=== PATIENT | female | born 1940 | race American Indian/Alaskan Native ===

== ENCOUNTER 2018-07-24 17:37 | Inpatient (IN) | payer MEDICARE ==
--- NOTE | 2018-07-24 19:06 | Emergency Department Report ---
ED Altered Mental Status HPI - General Chief Complaint: Weakness Stated Complaint: WEAKNESS Time Seen by Provider: 07/24/18 18:04 Source: EMS, old records reviewed (no previous record) Mode of arrival: Stretcher Limitations: Altered Mental Status - History of Present Illness Initial Comments: 78-year-old female with a past medical history of dementia, hypertension, hyperlipidemia, asthma, and [id number] diabetes presents to the hospital complains of generalized weakness and change in mental status 1 week. Patient was initially taken to a primary care clinic for evaluation and subsequently referred to the ER for further workup. Patient also has not had a bowel movement 1 week. Patient is unable to communicate exception of lessening her name when questioned. She does not answer questions overlie the follow commands. Awaiting family member at the bedside determine baseline mental status. - Related Data Allergies Allergy/AdvReac Type Severity Reaction Status Date / Time No Known Allergies Allergy Unverified 07/24/18 19:08 ED Review of Systems ROS: Stated complaint: WEAKNESS Other details as noted in HPI Comment: All other systems reviewed and negative ED Past Medical Hx - Past Medical History Previous Medical History?: Yes Hx Hypertension: Yes Hx Diabetes: Yes (DM with neuro manisfestation) Hx Asthma: Yes Hx Dementia: Yes Additional medical history: Hyperlipidemia; mild intermittent asthma; - Social History Smoking Status: Never Smoker Substance Use Type: None ED Physical Exam - General Limitations: Altered Mental Status - Other Other exam information: General: No limitations, patient is alert in no acute distress Head exam: Atraumatic, normocephalic Eyes exam: Normal appearance, pupils equal reactive to light, extraocular movements intact ENT: Moist mucous membrane, normal oropharynx Neck exam: Normal inspection, full range of motion, no meningismus nontender Respiratory exam: Clear to auscultation bilateral, no wheezes, rales, crackles Cardiovascular: Normal rate and rhythm, normal heart sounds Abdomen: Soft, nondistended, and nontender, with normal bowel sounds, no rebound, or guarding Extremity: Full range of motion normal inspection no deformity Back: Normal Inspection, full range of motion, no tenderness Neurologic: Alert, oriented x 1, cranial nerves intact, no motor or sensory deficit Psychiatric: normal affect, normal mood Skin: Warm, dry, intact ED Course Vital Signs 07/24/18 07/24/18 07/24/18 18:16 18:30 18:41 Temperature 98.1 F Pulse Rate 66 76 Respiratory 16 14 16 Rate Blood Pressure 147/118 Blood Pressure 147/118 [Right] O2 Sat by Pulse 94 94 Oximetry 07/24/18 07/24/18 07/24/18 18:46 19:00 19:16 Temperature Pulse Rate 72 69 71 Respiratory 16 14 16 Rate Blood Pressure 147/118 147/118 147/118 Blood Pressure [Right] O2 Sat by Pulse 97 91 78 L Oximetry 07/24/18 07/24/18 07/24/18 19:30 19:46 20:00 Temperature Pulse Rate 65 64 68 Respiratory 13 11 L 14 Rate Blood Pressure 147/118 147/118 147/118 Blood Pressure [Right] O2 Sat by Pulse 96 91 87 Oximetry 07/24/18 07/24/18 07/24/18 20:16 20:30 20:46 Temperature Pulse Rate 65 66 64 Respiratory 16 13 15 Rate Blood Pressure 147/118 147/118 147/118 Blood Pressure [Right] O2 Sat by Pulse 94 95 96 Oximetry 07/24/18 07/24/18 07/24/18 21:07 21:16 21:30 Temperature Pulse Rate 66 63 65 Respiratory 16 13 13 Rate Blood Pressure 147/118 147/118 147/118 Blood Pressure [Right] O2 Sat by Pulse 96 97 Oximetry - Lab Data Result diagrams: 07/24/18 21:24 07/24/18 21:24 Lab Results 07/24/18 07/24/18 07/24/18 Range/Units 19:03 19:20 19:20 WBC (4.5-11.0) K/mm3 RBC (3.65-5.03) M/mm3 Hgb (10.1-14.3) gm/dl Hct (30.3-42.9) % MCV (79-97) fl MCH (28-32) pg MCHC (30-34) % RDW (13.2-15.2) % Plt Count (140-440) K/mm3 Lymph % (Auto) (13.4-35.0) % [place] % (Auto) (0.0-7.3) % Eos % (Auto) (0.0-4.3) % Baso % (Auto) (0.0-1.8) % Lymph # (1.2-5.4) K/mm3 [place] # (0.0-0.8) K/mm3 Eos # (0.0-0.4) K/mm3 Baso # (0.0-0.1) K/mm3 Seg Neutrophils % (40.0-70.0) % Seg Neutrophils # (1.8-7.7) K/mm3 PT (12.2-14.9) Sec. INR (0.87-1.13) APTT (24.2-36.6) Sec. Sodium Potassium Chloride Carbon Dioxide Anion Gap BUN Creatinine Estimated GFR BUN/Creatinine Ratio Glucose POC Glucose 125 H (70-105) Calcium Total Bilirubin AST ALT Alkaline Phosphatase Total Creatine Kinase (30-135) units/L CK-MB (CK-2) (0.0-4.0) ng/mL CK-MB (CK-2) Rel Index (0-4) Troponin T (0.00-0.029) ng/mL Total Protein Albumin Albumin/Globulin Ratio TSH (0.270-4.200) mlU/mL Urine Color Yellow (Yellow) Urine Turbidity Slightly-cloudy (Clear) Urine pH 5.0 (5.0-7.0) Ur Specific [place] 1.015 (1.003-1.030) Urine Protein 30 mg/dl (Negative) mg/dL Urine Glucose (UA) Neg (Negative) mg/dL Urine Ketones Neg (Negative) mg/dL Urine Blood Neg (Negative) Urine Nitrite Neg (Negative) Urine Bilirubin Neg (Negative) Urine Urobilinogen < 2.0 (<2.0) mg/dL Ur Leukocyte Esterase Neg (Negative) Urine WBC (Auto) 9.0 H (0.0-6.0) /HPF Urine RBC (Auto) 2.0 (0.0-6.0) /HPF U Epithel Cells (Auto) < 1.0 (0-13.0) /HPF Urine WBC Clumps 2+ /HPF Hyaline Casts 3 /LPF Urine Mucus Few /HPF Salicylates (2.8-20.0) mg/dL Urine Opiates Screen Presumptive negative Urine Methadone Screen Presumptive negative Acetaminophen (10.0-30.0) ug/mL Ur Barbiturates Screen Presumptive negative Ur Phencyclidine Scrn Presumptive negative Ur Amphetamines Screen Presumptive negative U Benzodiazepines Scrn Presumptive negative Urine Cocaine Screen Presumptive negative U Marijuana (THC) Screen Presumptive negative Drugs of Abuse Note Disclamer Plasma/Serum Alcohol (0-0.07) % 07/24/18 07/24/18 07/24/18 Range/Units 19:36 19:36 19:36 WBC 12.0 H (4.5-11.0) K/mm3 RBC 5.14 H (3.65-5.03) M/mm3 Hgb 15.5 H (10.1-14.3) gm/dl Hct 47.7 H (30.3-42.9) % MCV 93 (79-97) fl MCH 30 (28-32) pg MCHC 33 (30-34) % RDW 13.5 (13.2-15.2) % Plt Count 153 (140-440) K/mm3 Lymph % (Auto) 25.6 (13.4-35.0) % [place] % (Auto) 9.1 H (0.0-7.3) % Eos % (Auto) 1.7 (0.0-4.3) % Baso % (Auto) 0.5 (0.0-1.8) % Lymph # 3.1 (1.2-5.4) K/mm3 [place] # 1.1 H (0.0-0.8) K/mm3 Eos # 0.2 (0.0-0.4) K/mm3 Baso # 0.1 (0.0-0.1) K/mm3 Seg Neutrophils % 63.1 (40.0-70.0) % Seg Neutrophils # 7.6 (1.8-7.7) K/mm3 PT (12.2-14.9) Sec. INR (0.87-1.13) APTT (24.2-36.6) Sec. Sodium TNR Potassium TNR Chloride TNR Carbon Dioxide TNR Anion Gap TNR BUN TNR Creatinine TNR Estimated GFR TNR BUN/Creatinine Ratio TNR Glucose TNR POC Glucose (70-105) Calcium TNR Total Bilirubin TNR AST TNR ALT TNR Alkaline Phosphatase TNR Total Creatine Kinase (30-135) units/L CK-MB (CK-2) (0.0-4.0) ng/mL CK-MB (CK-2) Rel Index (0-4) Troponin T (0.00-0.029) ng/mL Total Protein TNR Albumin TNR Albumin/Globulin Ratio TNR TSH 1.950 (0.270-4.200) mlU/mL Urine Color (Yellow) Urine Turbidity (Clear) Urine pH (5.0-7.0) Ur Specific [place] (1.003-1.030) Urine Protein (Negative) mg/dL Urine Glucose (UA) (Negative) mg/dL Urine Ketones (Negative) mg/dL Urine Blood (Negative) Urine Nitrite (Negative) Urine Bilirubin (Negative) Urine Urobilinogen (<2.0) mg/dL Ur Leukocyte Esterase (Negative) Urine WBC (Auto) (0.0-6.0) /HPF Urine RBC (Auto) (0.0-6.0) /HPF U Epithel Cells (Auto) (0-13.0) /HPF Urine WBC Clumps /HPF Hyaline Casts /LPF Urine Mucus /HPF Salicylates (2.8-20.0) mg/dL Urine Opiates Screen Urine Methadone Screen Acetaminophen (10.0-30.0) ug/mL Ur Barbiturates Screen Ur Phencyclidine Scrn Ur Amphetamines Screen U Benzodiazepines Scrn Urine Cocaine Screen U Marijuana (THC) Screen Drugs of Abuse Note Plasma/Serum Alcohol (0-0.07) % 07/24/18 07/24/18 07/24/18 Range/Units 19:36 19:36 19:36 WBC (4.5-11.0) K/mm3 RBC (3.65-5.03) M/mm3 Hgb (10.1-14.3) gm/dl Hct (30.3-42.9) % MCV (79-97) fl MCH (28-32) pg MCHC (30-34) % RDW (13.2-15.2) % Plt Count (140-440) K/mm3 Lymph % (Auto) (13.4-35.0) % [place] % (Auto) (0.0-7.3) % Eos % (Auto) (0.0-4.3) % Baso % (Auto) (0.0-1.8) % Lymph # (1.2-5.4) K/mm3 [place] # (0.0-0.8) K/mm3 Eos # (0.0-0.4) K/mm3 Baso # (0.0-0.1) K/mm3 Seg Neutrophils % (40.0-70.0) % Seg Neutrophils # (1.8-7.7) K/mm3 PT (12.2-14.9) Sec. INR (0.87-1.13) APTT (24.2-36.6) Sec. Sodium Potassium Chloride Carbon Dioxide Anion Gap BUN Creatinine Estimated GFR BUN/Creatinine Ratio Glucose POC Glucose (70-105) Calcium Total Bilirubin AST ALT Alkaline Phosphatase Total Creatine Kinase (30-135) units/L CK-MB (CK-2) (0.0-4.0) ng/mL CK-MB (CK-2) Rel Index (0-4) Troponin T (0.00-0.029) ng/mL Total Protein Albumin Albumin/Globulin Ratio TSH (0.270-4.200) mlU/mL Urine Color (Yellow) Urine Turbidity (Clear) Urine pH (5.0-7.0) Ur Specific [place] (1.003-1.030) Urine Protein (Negative) mg/dL Urine Glucose (UA) (Negative) mg/dL Urine Ketones (Negative) mg/dL Urine Blood (Negative) Urine Nitrite (Negative) Urine Bilirubin (Negative) Urine Urobilinogen (<2.0) mg/dL Ur Leukocyte Esterase (Negative) Urine WBC (Auto) (0.0-6.0) /HPF Urine RBC (Auto) (0.0-6.0) /HPF U Epithel Cells (Auto) (0-13.0) /HPF Urine WBC Clumps /HPF Hyaline Casts /LPF Urine Mucus /HPF Salicylates < 0.3 L (2.8-20.0) mg/dL Urine Opiates Screen Urine Methadone Screen Acetaminophen < 5.0 L (10.0-30.0) ug/mL Ur Barbiturates Screen Ur Phencyclidine Scrn Ur Amphetamines Screen U Benzodiazepines Scrn Urine Cocaine Screen U Marijuana (THC) Screen Drugs of Abuse Note Plasma/Serum Alcohol < 0.01 (0-0.07) % 07/24/18 07/24/18 07/24/18 Range/Units 19:36 21:24 21:24 WBC 9.1 (4.5-11.0) K/mm3 RBC 5.00 (3.65-5.03) M/mm3 Hgb 15.4 H (10.1-14.3) gm/dl Hct 47.1 H (30.3-42.9) % MCV 94 (79-97) fl MCH 31 (28-32) pg MCHC 33 (30-34) % RDW 13.8 (13.2-15.2) % Plt Count 204 (140-440) K/mm3 Lymph % (Auto) [place] Singer (13.4-35.0) % [place] % (Auto) Choir Singer (0.0-7.3) % Eos % (Auto) [place] Singer (0.0-4.3) % Baso % (Auto) [place] Singer (0.0-1.8) % Lymph # [place]oir Singer (1.2-5.4) K/mm3 [place] # Choir Singer (0.0-0.8) K/mm3 Eos # [place]oir Singer (0.0-0.4) K/mm3 Baso # [place]oir Singer (0.0-0.1) K/mm3 Seg Neutrophils % [place] Singer (40.0-70.0) % Seg Neutrophils # [place] Singer (1.8-7.7) K/mm3 PT 10.0 L (12.2-14.9) Sec. INR 0.68 L (0.87-1.13) APTT 25.6 (24.2-36.6) Sec. Sodium Potassium Chloride Carbon Dioxide Anion Gap BUN Creatinine Estimated GFR BUN/Creatinine Ratio Glucose POC Glucose (70-105) Calcium Total Bilirubin AST ALT Alkaline Phosphatase Total Creatine Kinase 263 H (30-135) units/L CK-MB (CK-2) 1.1 (0.0-4.0) ng/mL CK-MB (CK-2) Rel Index 0.4 (0-4) Troponin T 0.013 (0.00-0.029) ng/mL Total Protein Albumin Albumin/Globulin Ratio TSH (0.270-4.200) mlU/mL Urine Color (Yellow) Urine Turbidity (Clear) Urine pH (5.0-7.0) Ur Specific [place] (1.003-1.030) Urine Protein (Negative) mg/dL Urine Glucose (UA) (Negative) mg/dL Urine Ketones (Negative) mg/dL Urine Blood (Negative) Urine Nitrite (Negative) Urine Bilirubin (Negative) Urine Urobilinogen (<2.0) mg/dL Ur Leukocyte Esterase (Negative) Urine WBC (Auto) (0.0-6.0) /HPF Urine RBC (Auto) (0.0-6.0) /HPF U Epithel Cells (Auto) (0-13.0) /HPF Urine WBC Clumps /HPF Hyaline Casts /LPF Urine Mucus /HPF Salicylates (2.8-20.0) mg/dL Urine Opiates Screen Urine Methadone Screen Acetaminophen (10.0-30.0) ug/mL Ur Barbiturates Screen Ur Phencyclidine Scrn Ur Amphetamines Screen U Benzodiazepines Scrn Urine Cocaine Screen U Marijuana (THC) Screen Drugs of Abuse Note Plasma/Serum Alcohol (0-0.07) % 07/24/18 Range/Units 21:24 WBC (4.5-11.0) K/mm3 RBC (3.65-5.03) M/mm3 Hgb (10.1-14.3) gm/dl Hct (30.3-42.9) % MCV (79-97) fl MCH (28-32) pg MCHC (30-34) % RDW (13.2-15.2) % Plt Count (140-440) K/mm3 Lymph % (Auto) (13.4-35.0) % [place] % (Auto) (0.0-7.3) % Eos % (Auto) (0.0-4.3) % Baso % (Auto) (0.0-1.8) % Lymph # (1.2-5.4) K/mm3 [place] # (0.0-0.8) K/mm3 Eos # (0.0-0.4) K/mm3 Baso # (0.0-0.1) K/mm3 Seg Neutrophils % (40.0-70.0) % Seg Neutrophils # (1.8-7.7) K/mm3 PT (12.2-14.9) Sec. INR (0.87-1.13) APTT (24.2-36.6) Sec. Sodium 144 Potassium 6.0 H Chloride 103.6 Carbon Dioxide 21 L Anion Gap 25 BUN 66 H Creatinine 2.9 H Estimated GFR 19 BUN/Creatinine Ratio 23 Glucose 125 H POC Glucose (70-105) Calcium 10.1 Total Bilirubin 0.30 AST 18 ALT 11 Alkaline Phosphatase 96 Total Creatine Kinase (30-135) units/L CK-MB (CK-2) (0.0-4.0) ng/mL CK-MB (CK-2) Rel Index (0-4) Troponin T (0.00-0.029) ng/mL Total Protein 7.9 Albumin 4.3 Albumin/Globulin Ratio 1.2 TSH (0.270-4.200) mlU/mL Urine Color (Yellow) Urine Turbidity (Clear) Urine pH (5.0-7.0) Ur Specific [place] (1.003-1.030) Urine Protein (Negative) mg/dL Urine Glucose (UA) (Negative) mg/dL Urine Ketones (Negative) mg/dL Urine Blood (Negative) Urine Nitrite (Negative) Urine Bilirubin (Negative) Urine Urobilinogen (<2.0) mg/dL Ur Leukocyte Esterase (Negative) Urine WBC (Auto) (0.0-6.0) /HPF Urine RBC (Auto) (0.0-6.0) /HPF U Epithel Cells (Auto) (0-13.0) /HPF Urine WBC Clumps /HPF Hyaline Casts /LPF Urine Mucus /HPF Salicylates (2.8-20.0) mg/dL Urine Opiates Screen Urine Methadone Screen Acetaminophen (10.0-30.0) ug/mL Ur Barbiturates Screen Ur Phencyclidine Scrn Ur Amphetamines Screen U Benzodiazepines Scrn Urine Cocaine Screen U Marijuana (THC) Screen Drugs of Abuse Note Plasma/Serum Alcohol (0-0.07) % - EKG Data -: EKG Interpreted by [facility] EKG shows normal: sinus rhythm (qrs 38q), axis (qrs 38), QRS complexes (qrsd 131 ), ST-T waves (no stemi/t inv) Rate: normal When compared to previous EKG there are: previous EKG unavailable - Radiology Data Radiology results: report reviewed CT head: No acute findings Chest x-ray: No acute findings FINAL REPORT EXAM: XR ABDOMEN 2V HISTORY: no bm x 1 week TECHNIQUE: Supine and left lateral decubitus views of the abdomen PRIORS: None. FINDINGS: The bowel gas pattern is nonspecific. There is a small amount of stool present in the rectum the in minimal stool in the descending colon. No free air is identified. Soft tissues have no evidence for mass shadows. There are several amorphous rounded calcifications in the pelvis, likely due to fibroids in the uterus. The largest measures 4 cm. The bony structures are intact. IMPRESSION: Nonspecific, nonobstructive bowel gas pattern with no acute process noted. - Medical Decision Making ams + Dementia plus UTI: Rocephin ordered, cultures pending Renal insufficiency BUN/creatinine ratio suggesting dehydration Associated hyperkalemia (slightly hemolyzed as per lab): Sodium bicarbonate, albuterol, insulin, glucose, calcium gluconate ordered. Previous creatinine not available for comparison Normal saline initiated Lack of bowel movement No signs of obstruction on abdominal x-ray - Differential Diagnosis dementia, delirium, encephalopathy, CVA infection Critical Care Time: No Critical care attestation.: If time is entered above; I have spent that time in minutes in the direct care of this critically ill patient, excluding procedure time. ED Disposition Clinical Impression: Dementia, Acute alteration in mental status, UTI (urinary tract infection), Renal insufficiency, Hyperkalemia Disposition: OP ADMIT IP TO THIS HOSP Is pt being admited?: Yes Condition: Stable Time of Disposition: 22:03 (hospitalist/Dr Mcmahan)
[2018-07-24 20:04] LABS: Basophils # (Auto) 0.1 K/mm3 (0.0-0.1); Basophils % (Auto) 0.5 % (0.0-1.8); Eosinophils # (Auto) 0.2 K/mm3 (0.0-0.4); Eosinophils % (Auto) 1.7 % (0.0-4.3); Hematocrit 47.7 % (30.3-42.9); Hemoglobin 15.5 gm/dl (10.1-14.3); Lymphocytes # (Auto) 3.1 K/mm3 (1.2-5.4); Lymphocytes % (Auto) 25.6 % (13.4-35.0); Mean Corpuscular HGB Conc 33 % (30-34); Mean Corpuscular Hemoglobin 30 pg (28-32); Mean Corpuscular Volume 93 fl (79-97); Monocytes # (Auto) 1.1 K/mm3 (0.0-0.8); Monocytes % (Auto) 9.1 % (0.0-7.3); Platelet Count 153 K/mm3 (140-440); Red Blood Count 5.14 M/mm3 (3.65-5.03); Red Cell Distribution Width 13.5 % (13.2-15.2)
[2018-07-24 20:10] LABS: Amphetamine Screen,Urine PRESUMPTIVE NEGATIVE; Benzodiazepines Screen,Urine PRESUMPTIVE NEGATIVE; Cannabinoid Screen,Urine PRESUMPTIVE NEGATIVE; Cocaine Screen,Urine PRESUMPTIVE NEGATIVE; Methadone Screen,Urine PRESUMPTIVE NEGATIVE; Opiate Screen,Urine PRESUMPTIVE NEGATIVE
[2018-07-24 20:11] LABS: Creatine Kinase MB 1.1 ng/mL (0.0-4.0)
--- NOTE | 2018-07-24 20:26 | XRay Report ---
FINAL REPORT EXAM: XR CHEST 1V AP HISTORY: Altered Mental Status TECHNIQUE: AP portable view of the chest PRIORS: None. FINDINGS: Lines, tubes, and devices: N/A Lungs and pleura: Trachea is normal in position. Lungs are clear of infiltrate, pleural effusion, vascular congestion, or pneumothorax. Cardiomediastinal silhouette: Cardiac silhouette is upper limits normal in size. Aorta is normal.. Other: Bony structures are intact. IMPRESSION: No acute cardiopulmonary process seen.
[2018-07-24 20:28] LABS: Bilirubin,Urine NEG (Negative); Blood,Urine NEG (Negative); Color,Urine Yellow (Yellow); Hyaline Casts,Urine 3 /LPF; Mucus,Urine FEW /HPF; Urobilinogen,Urine < 2.0 mg/dL (<2.0)
[2018-07-24] MEDS ORDERED: ROCEPHIN/NS 1 GM/50 ML 1 GM/50 ML BAG IV ONE (20:34)
[2018-07-24 20:43] LABS: Alanine Aminotransferase TNR units/L (7-56); Albumin TNR g/dL (3.9-5); BUN/Creatinine Ratio TNR; Blood Urea Nitrogen TNR mg/dL (7-17); Calcium TNR mg/dL (8.4-10.2)
[2018-07-24 20:44] LABS: Hemolysis Index TNR
--- NOTE | 2018-07-24 20:45 | XRay Report ---
FINAL REPORT EXAM: XR ABDOMEN 2V HISTORY: no bm x 1 week TECHNIQUE: Supine and left lateral decubitus views of the abdomen PRIORS: None. FINDINGS: The bowel gas pattern is nonspecific. There is a small amount of stool present in the rectum the in minimal stool in the descending colon. No free air is identified. Soft tissues have no evidence for mass shadows. There are several amorphous rounded calcifications in the pelvis, likely due to fibroids in the uterus. The largest measures 4 cm. The bony structures are intact. IMPRESSION: Nonspecific, nonobstructive bowel gas pattern with no acute process noted.
--- NOTE | 2018-07-24 21:28 | Cat Scan Report ---
FINAL REPORT EXAM: CT HEAD/BRAIN WO CON HISTORY: AMS TECHNIQUE: Standard unenhanced CT of the head at 5.0 millimeter axial increments. PRIORS: None. FINDINGS: The ventricular system is normal in size and configuration. There is no evidence for parenchymal volume loss. There is no evidence for mass lesion, mass effect, midline shift, acute intracranial hemorrhage, or acute ischemia/ infarction. No evidence for acute skull fracture is seen. No abnormality in the overlying scalp soft tissues is seen. Visualized paranasal sinuses are clear. IMPRESSION: Negative CT of the head. No acute intracranial process noted.
[2018-07-24 21:40] LABS: Partial Thromboplastin Time 25.6 Sec. (24.2-36.6)
[2018-07-24 21:43] LABS: INR 0.68 (0.87-1.13)
[2018-07-24 21:46] LABS: Albumin 4.3 g/dL (3.9-5); Calcium 10.1 mg/dL (8.4-10.2)
[2018-07-24 21:47] LABS: Hematocrit 47.1 % (30.3-42.9); Hemoglobin 15.4 gm/dl (10.1-14.3); Mean Corpuscular HGB Conc 33 % (30-34); Mean Corpuscular Hemoglobin 31 pg (28-32); Mean Corpuscular Volume 94 fl (79-97); Platelet Count 204 K/mm3 (140-440); Red Cell Distribution Width 13.8 % (13.2-15.2)
[2018-07-24] MEDS ORDERED: CALCIUM GLUCONATE 1,000 MG in NACL 0.9% 100 ML IV ONE (21:57)
[2018-07-24] MEDS ORDERED: NACL 0.9% 1000 ML 1,000 ML IV ONE (21:57)
[2018-07-24] MEDS ORDERED: PROVENTIL IH ONE (21:57)
[2018-07-24] MEDS ORDERED: KIONEX PO ONE (21:57)
[2018-07-24] MEDS ORDERED: D50W (25GM) Syringe IV ONE (21:58)
[2018-07-24] MEDS ORDERED: HumuLIN R IV ONE (21:58)
[2018-07-24] MEDS ORDERED: SODIUM BICARBONATE IV ONE (21:58)
--- NOTE | 2018-07-24 23:16 | History and Physical Report ---
History of Present Illness Date of examination: 07/24/18 History of present illness: 78-year-old woman with a history of hypertension, dementia, hyperlipidemia, diabetes, asthma was brought to emergency room for generalized weakness and altered mental status per the chart. Unable to reach family, patient is unable to give history PAST MEDICAL HISTORY:hypertension, dementia, hyperlipidemia, diabetes, asthma PAST SURGICAL HISTORY: Unknown SOCIAL HISTORY: Unknown FAMILY HISTORY: Unknown Medications and Allergies Allergies Allergy/AdvReac Type Severity Reaction Status Date / Time No Known Allergies Allergy Unverified 07/24/18 19:08 Exam - Physical Exam Narrative exam: Gen. appearance: Patient lying in bed, no apparent distress HEENT: Normocephalic, atraumatic, pupils equally round and reactive to light, extraocular movement intact, and no sclericterus,. No JVD or thyromegaly or nodule,neck supple, no carotid bruit ,mucous membranes dry, no exudate or erythema Heart: S1, S2, regular rate and rhythm Lungs: Clear bilaterally, breathing comfortable Abdomen: Positive bowel sounds, non-tender, nondistended, no organomegaly Extremity:no edema cyanosis, clubbing Skin: no rash, dry, warm Neuro:difficult to assess - Constitutional Vitals: Temp Pulse Resp BP Pulse Ox 98.1 F 65 13 147/118 97 07/24/18 18:16 07/24/18 21:30 07/24/18 21:30 07/24/18 21:30 07/24/18 21:30 Results - Labs CBC & Chem 7: 07/24/18 21:24 07/24/18 21:24 Labs: Abnormal lab results 07/24/18 07/24/18 07/24/18 Range/Units 19:03 19:20 19:36 WBC 12.0 H (4.5-11.0) K/mm3 RBC 5.14 H (3.65-5.03) M/mm3 Hgb 15.5 H (10.1-14.3) gm/dl Hct 47.7 H (30.3-42.9) % [place] % (Auto) 9.1 H (0.0-7.3) % [place] # 1.1 H (0.0-0.8) K/mm3 PT (12.2-14.9) Sec. INR (0.87-1.13) Potassium (3.6-5.0) mmol/L Carbon Dioxide (22-30) mmol/L BUN (7-17) mg/dL Creatinine (0.7-1.2) mg/dL Glucose (65-100) mg/dL POC Glucose 125 H (70-105) Total Creatine Kinase (30-135) units/L Urine WBC (Auto) 9.0 H (0.0-6.0) /HPF Salicylates (2.8-20.0) mg/dL Acetaminophen (10.0-30.0) ug/mL 07/24/18 07/24/18 07/24/18 Range/Units 19:36 19:36 19:36 WBC (4.5-11.0) K/mm3 RBC (3.65-5.03) M/mm3 Hgb (10.1-14.3) gm/dl Hct (30.3-42.9) % [place] % (Auto) (0.0-7.3) % [place] # (0.0-0.8) K/mm3 PT (12.2-14.9) Sec. INR (0.87-1.13) Potassium (3.6-5.0) mmol/L Carbon Dioxide (22-30) mmol/L BUN (7-17) mg/dL Creatinine (0.7-1.2) mg/dL Glucose (65-100) mg/dL POC Glucose (70-105) Total Creatine Kinase 263 H (30-135) units/L Urine WBC (Auto) (0.0-6.0) /HPF Salicylates < 0.3 L (2.8-20.0) mg/dL Acetaminophen < 5.0 L (10.0-30.0) ug/mL 07/24/18 07/24/18 07/24/18 Range/Units 21:24 21:24 21:24 WBC (4.5-11.0) K/mm3 RBC (3.65-5.03) M/mm3 Hgb 15.4 H (10.1-14.3) gm/dl Hct 47.1 H (30.3-42.9) % [place] % (Auto) (0.0-7.3) % [place] # (0.0-0.8) K/mm3 PT 10.0 L (12.2-14.9) Sec. INR 0.68 L (0.87-1.13) Potassium 6.0 H (3.6-5.0) mmol/L Carbon Dioxide 21 L (22-30) mmol/L BUN 66 H (7-17) mg/dL Creatinine 2.9 H (0.7-1.2) mg/dL Glucose 125 H (65-100) mg/dL POC Glucose (70-105) Total Creatine Kinase (30-135) units/L Urine WBC (Auto) (0.0-6.0) /HPF Salicylates (2.8-20.0) mg/dL Acetaminophen (10.0-30.0) ug/mL - Imaging and Cardiology Chest x-ray: report reviewed Abdominal x-ray: report reviewed CT Scan - head: report reviewed Assessment and Plan Assessment Acute renal failure Hyperkalemia Urinary tract infection Diabetes Dementia Hypertension Hyperlipidemia Plan Admit to medicine Start IV fluid, check ultrasound of the kidneys, consult renal Status post cocktail for hyperkalemia, follow-up potassium level Start IV Rocephin and follow cultures Check fingersticks and initiate insulin sliding scale DVT prophylaxis
[2018-07-24] MEDS ORDERED: NACL 0.45% 1000 ML 1,000 ML IV SCH (23:45)
[2018-07-25] MEDS ORDERED: TYLENOL PO PRN (03:31)
[2018-07-25] MEDS ORDERED: ZOFRAN IV PRN (03:31)
[2018-07-25] MEDS ORDERED: SODIUM CHLORIDE FLUSH SYRINGE 10 ML IV PRN (03:31)
[2018-07-25] MEDS ORDERED: D50W (25GM) Syringe IV PRN ×2 (03:40→17:50)
[2018-07-25 04:55] LABS: Basophils # (Auto) 0.1 K/mm3 (0.0-0.1); Basophils % (Auto) 0.7 % (0.0-1.8); Eosinophils # (Auto) 0.2 K/mm3 (0.0-0.4); Eosinophils % (Auto) 2.1 % (0.0-4.3); Hematocrit 40.7 % (30.3-42.9); Hemoglobin 13.3 gm/dl (10.1-14.3); Lymphocytes # (Auto) 3.1 K/mm3 (1.2-5.4); Lymphocytes % (Auto) 29.5 % (13.4-35.0); Mean Corpuscular HGB Conc 33 % (30-34); Mean Corpuscular Hemoglobin 30 pg (28-32); Mean Corpuscular Volume 93 fl (79-97); Monocytes # (Auto) 0.8 K/mm3 (0.0-0.8); Monocytes % (Auto) 7.9 % (0.0-7.3); Platelet Count 219 K/mm3 (140-440); Red Blood Count 4.36 M/mm3 (3.65-5.03); Red Cell Distribution Width 13.5 % (13.2-15.2)
[2018-07-25] MEDS: HumaLOG SUB-Q SCH ×4 (08:10→18:07)
--- NOTE | 2018-07-25 09:24 | Consultation ---
History of Present Illness - Reason for Consult Consult date: 07/25/18 acute renal failure - History of Present Illness History obtained from records. Family members not at bedside 78-year-old female with a past medical history of dementia, hypertension, type II DM who presents to the hospital w/ AMS. Patient was initially taken to a primary care clinic for evaluation and subsequently referred to the ER for further workup. Patient also has not had a bowel movement 1 week. Patient does not answer questions or follow commands. Past History Past Medical History: diabetes, hypertension, hyperlipidemia Social history: lives with family Family history: no significant family history Medications and Allergies Allergies Allergy/AdvReac Type Severity Reaction Status Date / Time No Known Allergies Allergy Unverified 07/24/18 19:08 Home Medications Medication Instructions Recorded Confirmed Last Taken Type ALBUTEROL Inhaler (OR & NICU) 2 puff IH QID PRN 07/25/18 07/25/18 Unknown History [Proair] Acetaminophen 325 mg PO TID PRN 07/25/18 07/25/18 Unknown History AtorvaSTATin [Lipitor] 10 mg PO QHS 07/25/18 07/25/18 Unknown History Ipratropium/Albuterol Sulfate 1 ampul IH Q6HR 07/25/18 07/25/18 Unknown History [DUONEB *Not for PRN Use*] Lisinopril [Zestril TAB] 40 mg PO QDAY 07/25/18 07/25/18 Unknown History Memantine HCl [Namenda Xr] 28 mg PO DAILY 07/25/18 07/25/18 Unknown History Metoprolol Xl [Metoprolol 50 mg PO QDAY 07/25/18 07/25/18 Unknown History SUCCINATE ER TAB] Montelukast [Singulair] 10 mg PO QPM 07/25/18 07/25/18 Unknown History amLODIPine [Norvasc] 5 mg PO DAILY 07/25/18 07/25/18 Unknown History glipiZIDE [Glipizide] 5 mg PO BID 07/25/18 07/25/18 Unknown History metFORMIN [Glucophage] 500 mg PO BID 07/25/18 07/25/18 Unknown History tiZANidine [Zanaflex] 4 mg PO BID 07/25/18 07/25/18 Unknown History Active Meds: Active Medications Acetaminophen (Tylenol) 650 mg PO Q4H PRN PRN Reason: Pain MILD(1-3)/Fever >100.5/SANTOS Dextrose (D50w (25gm) Syringe) 50 ml IV PRN PRN PRN Reason: Hypoglycemia Enoxaparin Sodium (Lovenox) 30 mg SUB-Q QDAY LISBETH Hydralazine HCl (Apresoline) 5 mg IV Q6HR PRN PRN Reason: Hypertension Sodium Chloride (Nacl 0.45% 1000 Ml) 1,000 mls @ 75 mls/hr IV DIRECT LISBETH Insulin Human Lispro (Humalog) 0 unit SUB-Q ACHS LISBETH; Protocol Last Admin: 07/25/18 08:10 Dose: Not Given Ondansetron HCl (Zofran) 4 mg IV Q8H PRN PRN Reason: Nausea And Vomiting Sodium Chloride (Sodium Chloride Flush Syringe 10 Ml) 10 ml IV BID LISBETH Sodium Chloride (Sodium Chloride Flush Syringe 10 Ml) 10 ml IV PRN PRN PRN Reason: LINE FLUSH Review of Systems ROS unobtainable: due to mental status Exam - Vital Signs Vital signs: Vital Signs Temp Pulse Resp BP Pulse Ox 98.1 F 66 16 147/118 94 07/24/18 18:16 07/24/18 18:16 07/24/18 18:16 07/24/18 18:16 07/24/18 18:16 - General Appearance General appearance: well-developed, well-nourished EENT: ATNC Respiratory: Clear to Ascultation Heart: regular, S1S2 Gastrointestinal: Present: normal. Absent: tenderness, distended Integumentary: no rash, warm and dry Neurologic: other (awake, alert, does not respond to questions) Psychiatric: cooperative Results - Lab Results 07/25/18 04:15 07/26/18 06:09 Most recent lab results Calcium 10.0 mg/dL (8.4-10.2) 07/25/18 04:15 Assessment and Plan Assessment * Acute kidney injury secondary to prerenal azotemia due to volume depletion * Hypernatermia * Hyperkalemia * Urinary tract infection * Type II DM * Hypertension * Dementia Plan * Agree with IVF * Monitor UOP and volume status * Abx per primary team * Dose medications for renal function * Avoid potential nephrotoxins
[2018-07-25] MEDS ORDERED: LOVENOX SUB-Q SCH (10:00)
--- NOTE | 2018-07-25 14:26 | Ultrasound Report ---
ULTRASOUND RENAL BILATERAL HISTORY: Acute renal failure. TECHNIQUE: transabdominal ultrasound with color Doppler interrogation. FINDINGS: Scans of the kidneys show normal renal contours. There is normal central calyceal clustering and good preservation of the cortical thickness. There is no evidence of mass or hydronephrosis. The views of the bladder and the region of the ureters appear normal. IMPRESSION: Unremarkable renal ultrasound.
--- NOTE | 2018-07-25 17:43 | Progress Note ---
Assessment and Plan Assessment and plan: Patient is a 78 yo woman with Advance Dementia, hypertension, DM2, hyperlipidemia and asthma who pw AMS. Acute renal failure, vasomotor nephropathy, poa: treat with IVF, avoid nephrotoxic drugs, consulted Nephrology Hyperkalemia: treat with kayexalate, repeat in am Hypernatremia: adjust ivf, change to d5 and watch blood glucose closely, repeat bmp am Urinary tract infection, poa: treat with aBX, follow urine culture Diabetes Mellitus type 2: ssi until she starts to eat Advance Dementia: fall precaution, aspiration precautions, consult speech Acute encephalopathy: treat the uti Hypertension: continue to monitor on ivf Hyperlipidemia; treat with statins DVT prophylaxis: sq heparin, stopped sq lovenox full code History Interval history: Patient was seen and examined. Follow-up on current diagnosis of AMS. Overnight uneventful. Patient denies any chest pain, shortness breath, nausea/vomiting or severe headaches. Imaging, nursing note, chart, labs and old chart reviewed. Discussed with patient. Daughters Cathy Rosario and Kaitlynn (pt has 7 children) at bedside. Patient lives with Marlene (hospice nurse I believe) and she report FTT for couple of days with AMS. Patient was in hospice but out lived the stay. is the POA. We did discuss PEG tube but daughter Marlene is not in favor of PEG because the FTT/not eating or drinking only occurs when something is wrong. Hospitalist Physical - Physical exam Narrative exam: GEN: WDWN, illappearing NAD, Awake, Alert, Not talking HEENT: NCAT, EOMI, PERRL, OP Clear NECK: supple, no adenopathy, no thyromegaly, no JVD CVS/HEART: RRR, normal S1S2, pulses present bilaterally CHEST/LUNGS: CTA B, Symmetrical chest expansion, good air entry bilaterally GI/Abdomen: soft, NTND, good bowel sounds, no guarding or rebound /Bladder: +suprapubic tenderness, no CVA or paraspinal tenderness EXT/Skin: no c/c/e, no obvious rash MSK: FROM x 4 Neuro: CN 2-12 grossly intact, no new focal deficits Psych: calm and confused - Constitutional Vitals: Temp Pulse Resp BP Pulse Ox 98.7 F 74 16 140/66 100 07/25/18 10:32 07/25/18 10:32 07/25/18 10:32 07/25/18 10:32 07/25/18 10:32 Results - Labs CBC & Chem 7: 07/25/18 04:15 07/25/18 04:15 Labs: Laboratory Last Values WBC 10.4 K/mm3 (4.5-11.0) 07/25/18 04:15 RBC 4.36 M/mm3 (3.65-5.03) 07/25/18 04:15 Hgb 13.3 gm/dl (10.1-14.3) 07/25/18 04:15 Hct 40.7 % (30.3-42.9) D 07/25/18 04:15 MCV 93 fl (79-97) 07/25/18 04:15 MCH 30 pg (28-32) 07/25/18 04:15 MCHC 33 % (30-34) 07/25/18 04:15 RDW 13.5 % (13.2-15.2) 07/25/18 04:15 Plt Count 219 K/mm3 (140-440) 07/25/18 04:15 Lymph % (Auto) 29.5 % (13.4-35.0) 07/25/18 04:15 [place] % (Auto) 7.9 % (0.0-7.3) H 07/25/18 04:15 Eos % (Auto) 2.1 % (0.0-4.3) 07/25/18 04:15 Baso % (Auto) 0.7 % (0.0-1.8) 07/25/18 04:15 Lymph # 3.1 K/mm3 (1.2-5.4) 07/25/18 04:15 [place] # 0.8 K/mm3 (0.0-0.8) 07/25/18 04:15 Eos # 0.2 K/mm3 (0.0-0.4) 07/25/18 04:15 Baso # 0.1 K/mm3 (0.0-0.1) 07/25/18 04:15 Seg Neutrophils % 59.8 % (40.0-70.0) 07/25/18 04:15 Seg Neutrophils # 6.2 K/mm3 (1.8-7.7) 07/25/18 04:15 PT 10.0 Sec. (12.2-14.9) L 07/24/18 21:24 INR 0.68 (0.87-1.13) L 07/24/18 21:24 APTT 25.6 Sec. (24.2-36.6) 07/24/18 21:24 Sodium 150 mmol/L (137-145) H 07/25/18 04:15 Potassium 5.2 mmol/L (3.6-5.0) H 07/25/18 04:15 Chloride 107.2 mmol/L (98-107) H 07/25/18 04:15 Carbon Dioxide 27 mmol/L (22-30) 07/25/18 04:15 Anion Gap 21 mmol/L 07/25/18 04:15 BUN 65 mg/dL (7-17) H 07/25/18 04:15 Creatinine 2.1 mg/dL (0.7-1.2) H 07/25/18 04:15 Estimated GFR 28 ml/min 07/25/18 04:15 BUN/Creatinine Ratio 31 % 07/25/18 04:15 Glucose 149 mg/dL (65-100) H 07/25/18 04:15 POC Glucose 135 (70-105) H 07/25/18 16:26 Calcium 10.0 mg/dL (8.4-10.2) 07/25/18 04:15 Total Bilirubin 0.30 mg/dL (0.1-1.2) 07/24/18 21:24 AST 18 units/L (5-40) 07/24/18 21:24 ALT 11 units/L (7-56) 07/24/18 21:24 Alkaline Phosphatase 96 units/L (35-129) 07/24/18 21:24 Total Creatine Kinase 263 units/L (30-135) H 07/24/18 19:36 CK-MB (CK-2) 1.1 ng/mL (0.0-4.0) 07/24/18 19:36 CK-MB (CK-2) Rel Index 0.4 (0-4) 07/24/18 19:36 Troponin T 0.013 ng/mL (0.00-0.029) 07/24/18 19:36 Total Protein 7.9 g/dL (6.3-8.2) 07/24/18 21:24 Albumin 4.3 g/dL (3.9-5) 07/24/18 21:24 Albumin/Globulin Ratio 1.2 % 07/24/18 21:24 TSH 1.950 mlU/mL (0.270-4.200) 07/24/18 19:36 Urine Color Yellow (Yellow) 07/24/18 19:20 Urine Turbidity Slightly-cloudy (Clear) 07/24/18 19:20 Urine pH 5.0 (5.0-7.0) 07/24/18 19:20 Ur Specific [place] 1.015 (1.003-1.030) 07/24/18 19:20 Urine Protein 30 mg/dl mg/dL (Negative) 07/24/18 19:20 Urine Glucose (UA) Neg mg/dL (Negative) 07/24/18 19:20 Urine Ketones Neg mg/dL (Negative) 07/24/18 19:20 Urine Blood Neg (Negative) 07/24/18 19:20 Urine Nitrite Neg (Negative) 07/24/18 19:20 Urine Bilirubin Neg (Negative) 07/24/18 19:20 Urine Urobilinogen < 2.0 mg/dL (<2.0) 07/24/18 19:20 Ur Leukocyte Esterase Neg (Negative) 07/24/18 19:20 Urine WBC (Auto) 9.0 /HPF (0.0-6.0) H 07/24/18 19:20 Urine RBC (Auto) 2.0 /HPF (0.0-6.0) 07/24/18 19:20 U Epithel Cells (Auto) < 1.0 /HPF (0-13.0) 07/24/18 19:20 Urine WBC Clumps 2+ /HPF 07/24/18 19:20 Hyaline Casts 3 /LPF 07/24/18 19:20 Urine Mucus Few /HPF 07/24/18 19:20 Salicylates < 0.3 mg/dL (2.8-20.0) L 07/24/18 19:36 Urine Opiates Screen Presumptive negative 07/24/18 19:20 Urine Methadone Screen Presumptive negative 07/24/18 19:20 Acetaminophen < 5.0 ug/mL (10.0-30.0) L 07/24/18 19:36 Ur Barbiturates Screen Presumptive negative 07/24/18 19:20 Ur Phencyclidine Scrn Presumptive negative 07/24/18 19:20 Ur Amphetamines Screen Presumptive negative 07/24/18 19:20 U Benzodiazepines Scrn Presumptive negative 07/24/18 19:20 Urine Cocaine Screen Presumptive negative 07/24/18 19:20 U Marijuana (THC) Screen Presumptive negative 07/24/18 19:20 Drugs of Abuse Note Disclamer 07/24/18 19:20 Plasma/Serum Alcohol < 0.01 % (0-0.07) 07/24/18 19:36
[2018-07-25] MEDS: SODIUM CHLORIDE FLUSH SYRINGE 10 ML IV SCH ×2 (17:46→23:40)
[2018-07-25] MEDS ORDERED: KIONEX PO ONE (18:47)
[2018-07-25] MEDS: APRESOLINE IV PRN (23:40)
[2018-07-26] MEDS: HumaLOG SUB-Q SCH ×4 (00:51→19:00)
[2018-07-26] MEDS: D5W 1,000 ML IV SCH (05:01)
[2018-07-26 06:43] LABS: Calcium 8.9 mg/dL (8.4-10.2)
--- NOTE | 2018-07-26 08:58 | Progress Note ---
Assessment and Plan Assessment and plan: Patient is a 78 yo woman with Advance Dementia, hypertension, DM2, hyperlipidemia and asthma who pw AMS. Acute renal failure, vasomotor nephropathy, poa, renal function improving Cr now 1.1 from 2.9: continue iv hydration, Hyperkalemia: treated with kayexalate, now resolved Hypernatremia: adjusted ivf, change to d5 and watch blood glucose closely improving Urinary tract infection, poa: treat with aBX, follow urine culture Diabetes Mellitus type 2: ssi until she starts to eat Advance Dementia: fall precaution, aspiration precautions, consult speech Acute encephalopathy: treat the uti Hypertension: continue to monitor on ivf Hyperlipidemia; treat with statins DVT prophylaxis: sq heparin, stopped sq lovenox full code History Interval history: Patient was seen and examined. Follow-up on current diagnosis of AMS. Overnight uneventful. Imaging, nursing note, chart, labs and old chart reviewed. Hospitalist Physical - Physical exam Narrative exam: GEN: WDWN, illappearing NAD, Awake, Alert, Not talking HEENT: NCAT, EOMI, PERRL, OP Clear NECK: supple, no adenopathy, no thyromegaly, no JVD CVS/HEART: RRR, normal S1S2, pulses present bilaterally CHEST/LUNGS: CTA B, Symmetrical chest expansion, good air entry bilaterally GI/Abdomen: soft, NTND, good bowel sounds, no guarding or rebound /Bladder: +suprapubic tenderness, no CVA or paraspinal tenderness EXT/Skin: no c/c/e, no obvious rash MSK: FROM x 4 Neuro: CN 2-12 grossly intact, no new focal deficits Psych: calm and confused - Constitutional Vitals: Temp Pulse Resp BP Pulse Ox 96.6 F L 73 18 157/100 97 07/26/18 08:15 07/26/18 08:15 07/26/18 08:15 07/26/18 08:15 07/26/18 08:15 Results - Labs CBC & Chem 7: 07/25/18 04:15 07/26/18 06:09 Labs: Laboratory Last Values WBC 10.4 K/mm3 (4.5-11.0) 07/25/18 04:15 RBC 4.36 M/mm3 (3.65-5.03) 07/25/18 04:15 Hgb 13.3 gm/dl (10.1-14.3) 07/25/18 04:15 Hct 40.7 % (30.3-42.9) D 07/25/18 04:15 MCV 93 fl (79-97) 07/25/18 04:15 MCH 30 pg (28-32) 07/25/18 04:15 MCHC 33 % (30-34) 07/25/18 04:15 RDW 13.5 % (13.2-15.2) 07/25/18 04:15 Plt Count 219 K/mm3 (140-440) 07/25/18 04:15 Lymph % (Auto) 29.5 % (13.4-35.0) 07/25/18 04:15 [place] % (Auto) 7.9 % (0.0-7.3) H 07/25/18 04:15 Eos % (Auto) 2.1 % (0.0-4.3) 07/25/18 04:15 Baso % (Auto) 0.7 % (0.0-1.8) 07/25/18 04:15 Lymph # 3.1 K/mm3 (1.2-5.4) 07/25/18 04:15 [place] # 0.8 K/mm3 (0.0-0.8) 07/25/18 04:15 Eos # 0.2 K/mm3 (0.0-0.4) 07/25/18 04:15 Baso # 0.1 K/mm3 (0.0-0.1) 07/25/18 04:15 Seg Neutrophils % 59.8 % (40.0-70.0) 07/25/18 04:15 Seg Neutrophils # 6.2 K/mm3 (1.8-7.7) 07/25/18 04:15 PT 10.0 Sec. (12.2-14.9) L 07/24/18 21:24 INR 0.68 (0.87-1.13) L 07/24/18 21:24 APTT 25.6 Sec. (24.2-36.6) 07/24/18 21:24 Sodium 146 mmol/L (137-145) H 07/26/18 06:09 Potassium 4.7 mmol/L (3.6-5.0) 07/26/18 06:09 Chloride 106.4 mmol/L (98-107) 07/26/18 06:09 Carbon Dioxide 24 mmol/L (22-30) 07/26/18 06:09 Anion Gap 20 mmol/L 07/26/18 06:09 BUN 42 mg/dL (7-17) H 07/26/18 06:09 Creatinine 1.1 mg/dL (0.7-1.2) 07/26/18 06:09 Estimated GFR 58 ml/min 07/26/18 06:09 BUN/Creatinine Ratio 38 % 07/26/18 06:09 Glucose 146 mg/dL (65-100) H 07/26/18 06:09 POC Glucose 176 (70-105) H 07/26/18 08:13 Calcium 8.9 mg/dL (8.4-10.2) 07/26/18 06:09 Total Bilirubin 0.30 mg/dL (0.1-1.2) 07/24/18 21:24 AST 18 units/L (5-40) 07/24/18 21:24 ALT 11 units/L (7-56) 07/24/18 21:24 Alkaline Phosphatase 96 units/L (35-129) 07/24/18 21:24 Total Creatine Kinase 263 units/L (30-135) H 07/24/18 19:36 CK-MB (CK-2) 1.1 ng/mL (0.0-4.0) 07/24/18 19:36 CK-MB (CK-2) Rel Index 0.4 (0-4) 07/24/18 19:36 Troponin T 0.013 ng/mL (0.00-0.029) 07/24/18 19:36 Total Protein 7.9 g/dL (6.3-8.2) 07/24/18 21:24 Albumin 4.3 g/dL (3.9-5) 07/24/18 21:24 Albumin/Globulin Ratio 1.2 % 07/24/18 21:24 TSH 1.950 mlU/mL (0.270-4.200) 07/24/18 19:36 Urine Color Yellow (Yellow) 07/24/18 19:20 Urine Turbidity Slightly-cloudy (Clear) 07/24/18 19:20 Urine pH 5.0 (5.0-7.0) 07/24/18 19:20 Ur Specific [place] 1.015 (1.003-1.030) 07/24/18 19:20 Urine Protein 30 mg/dl mg/dL (Negative) 07/24/18 19:20 Urine Glucose (UA) Neg mg/dL (Negative) 07/24/18 19:20 Urine Ketones Neg mg/dL (Negative) 07/24/18 19:20 Urine Blood Neg (Negative) 07/24/18 19:20 Urine Nitrite Neg (Negative) 07/24/18 19:20 Urine Bilirubin Neg (Negative) 07/24/18 19:20 Urine Urobilinogen < 2.0 mg/dL (<2.0) 07/24/18 19:20 Ur Leukocyte Esterase Neg (Negative) 07/24/18 19:20 Urine WBC (Auto) 9.0 /HPF (0.0-6.0) H 07/24/18 19:20 Urine RBC (Auto) 2.0 /HPF (0.0-6.0) 07/24/18 19:20 U Epithel Cells (Auto) < 1.0 /HPF (0-13.0) 07/24/18 19:20 Urine WBC Clumps 2+ /HPF 07/24/18 19:20 Hyaline Casts 3 /LPF 07/24/18 19:20 Urine Mucus Few /HPF 07/24/18 19:20 Salicylates < 0.3 mg/dL (2.8-20.0) L 07/24/18 19:36 Urine Opiates Screen Presumptive negative 07/24/18 19:20 Urine Methadone Screen Presumptive negative 07/24/18 19:20 Acetaminophen < 5.0 ug/mL (10.0-30.0) L 07/24/18 19:36 Ur Barbiturates Screen Presumptive negative 07/24/18 19:20 Ur Phencyclidine Scrn Presumptive negative 07/24/18 19:20 Ur Amphetamines Screen Presumptive negative 07/24/18 19:20 U Benzodiazepines Scrn Presumptive negative 07/24/18 19:20 Urine Cocaine Screen Presumptive negative 07/24/18 19:20 U Marijuana (THC) Screen Presumptive negative 07/24/18 19:20 Drugs of Abuse Note Disclamer 07/24/18 19:20 Plasma/Serum Alcohol < 0.01 % (0-0.07) 07/24/18 19:36
--- NOTE | 2018-07-26 09:59 | Progress Note ---
Assessment and Plan Assessment * Acute kidney injury secondary to prerenal azotemia due to volume depletion * Hypernatermia * Hyperkalemia * Urinary tract infection * Type II DM * Hypertension * Dementia Plan * Renal function and electrolytes improved * Continue IVF for gentle hydration as patient is not eating * Monitor UOP and volume status * Abx per primary team * Dose medications for renal function * Avoid potential nephrotoxins * Will see prn Subjective Date of service: 07/26/18 Interval history: No acute events overnignt. ST at bedside - reports patient will not cooperate with swallowing eval. Objective - Vital Signs Vital signs: Vital Signs - 12hr 07/25/18 07/25/18 07/26/18 22:00 23:40 03:07 Temperature 97.9 F Pulse Rate 80 72 Pulse Rate [ 80 Left Radial] Respiratory 18 Rate Blood Pressure 167/90 183/69 O2 Sat by Pulse 94 Oximetry 07/26/18 08:15 Temperature 96.6 F L Pulse Rate 73 Pulse Rate [ Left Radial] Respiratory 18 Rate Blood Pressure 157/100 O2 Sat by Pulse 97 Oximetry - General Appearance General appearance: well-developed, well-nourished EENT: ATNC Respiratory: Present: Clear to Ascultation Cardiology: regular, S1S2 Gastrointestinal: normal, no tenderness, no distended Integumentary: no rash Neurologic: other (nonverbal) Psychiatric: cooperative - Lab 07/25/18 04:15 07/26/18 06:09 Most recent lab results Calcium 8.9 mg/dL (8.4-10.2) 07/26/18 06:09
[2018-07-26] MEDS: ROCEPHIN/NS 1 GM/50 ML 1 GM/50 ML BAG IV SCH (10:50)
[2018-07-26] MEDS: SODIUM CHLORIDE FLUSH SYRINGE 10 ML IV SCH ×2 (10:50→23:51)
[2018-07-26] MEDS: APRESOLINE IV PRN (22:17)
[2018-07-27] MEDS: HumaLOG SUB-Q SCH ×3 (00:52→12:29)
[2018-07-27] MEDS: D5W 1,000 ML IV SCH (03:25)
[2018-07-27 06:56] LABS: BUN/Creatinine Ratio 28; Blood Urea Nitrogen 25 mg/dL (7-17); Calcium 8.9 mg/dL (8.4-10.2); Hemolysis Index 25
[2018-07-27] MEDS: ROCEPHIN/NS 1 GM/50 ML 1 GM/50 ML BAG IV SCH (10:42)
[2018-07-27] MEDS: SODIUM CHLORIDE FLUSH SYRINGE 10 ML IV SCH (10:43)
[2018-07-27] MEDS: APRESOLINE IV PRN (10:45)
--- NOTE | 2018-07-27 14:50 | Discharge Summary ---
Providers - Providers Date of Admission: 07/24/18 23:14 Date of discharge: 07/27/18 Attending physician: MANUEL MAURICIO 07/25/18 03:31 Consult to Physician [CONS] Routine Comment: Dr. Escobar notified @ [id number] Consulting Provider: CYN ESCOBAR Physician Instructions: Reason For Exam: arf 07/25/18 17:48 Speech Therapy Evaluation and Treat [CONS] Routine Reason For Exam: dementia, dysphagia Primary care physician: GRAPHOTYPE OPERATOR Hospitalization Condition: Stable Hospital course: Patient is a 78 yo woman with Advance Dementia, hypertension, DM2, hyperlipidemia and asthma who pw AMS. Acute renal failure, vasomotor nephropathy, poa, renal function improving Cr now 0.9 from 2.9: continue iv hydration, Hyperkalemia: treated with kayexalate, now resolved Hypernatremia: adjusted ivf, change to d5 and watch blood glucose closely improving, now resolved Urinary tract infection, poa: treat with aBX, urine culture showed no growth, will send home on ceftin Diabetes Mellitus type 2: ssi until she starts to eat Advance Dementia: fall precaution, aspiration precautions, consult speech Acute encephalopathy: treat the uti, back to her baseline it appears Hypertension: continue to monitor on ivf Hyperlipidemia; treat with statins DVT prophylaxis: sq heparin, stopped sq lovenox full code Disposition: TO HOME OR SELFCARE Time spent for discharge: 34 minutes Core Measure Documentation - Palliative Care Palliative Care/ Comfort Measures: Not Applicable - Core Measures Any of the following diagnoses?: none - VTE Discharge Requirements Deep Vein Thrombosis/Pulmonary Embolism Present on Admission: No Has pt received <5 days of overlap therapy or INR<2.0: No Anticoagulant overlap therapy prescribed at discharge: No Contraindication No Overlap Therapy order at DC: Not Indicated Exam - Physical Exam Narrative exam: GEN: WDWN, illappearing NAD, Awake, Alert, Not talking HEENT: NCAT, EOMI, PERRL, OP Clear NECK: supple, no adenopathy, no thyromegaly, no JVD CVS/HEART: RRR, normal S1S2, pulses present bilaterally CHEST/LUNGS: CTA B, Symmetrical chest expansion, good air entry bilaterally GI/Abdomen: soft, NTND, good bowel sounds, no guarding or rebound /Bladder: +suprapubic tenderness, no CVA or paraspinal tenderness EXT/Skin: no c/c/e, no obvious rash MSK: FROM x 4 Neuro: CN 2-12 grossly intact, no new focal deficits Psych: calm and confused - Constitutional Vitals: Temp Pulse Resp BP Pulse Ox 98.3 F 79 20 157/124 96 07/27/18 07:57 07/27/18 10:45 07/27/18 07:57 07/27/18 10:45 07/27/18 09:05 Plan Activity: up only with assistance, fall precautions, other (no strenous activity ) Diet: advance as tolerated Additional Instructions: No Lisinopril Follow up with: PRIMARY CAREMD [Primary Care Provider] - 7 Days CYN ESCOBAR MD [Staff Physician] - 7 Days Prescriptions: Acetaminophen [Acetaminophen TAB] 650 mg PO Q4H PRN #15 tablet PRN Reason: Pain MILD(1-3)/Fever >100.5/SANTOS Amlodipine Besylate [Norvasc] 10 mg PO DAILY #30 tablet cefUROXime [Ceftin] 250 mg PO BID #10 tablet
[2018-07-27 15:25] VITALS: BP 153/53
== END 2018-07-27 17:00 | disposition home or self-care (01) | DRG 682 ==
LOC: ED 17:37 → 4A 23:14 → 2B-ACE 07-25 09:25
PROVIDERS: ADMIT Internal Medicine; ATTEND Internal Medicine
DX: N17.0 Acute kidney failure with tubular necrosis (principal); G93.49 Other encephalopathy; E87.0 Hyperosmolality and hypernatremia; N39.0 Urinary tract infection, site not specified; F03.90 Unspecified dementia, unspecified severity, without behavioral disturbance, psychotic disturbance, mood disturbance, and anxiety; E87.5 Hyperkalemia; I10 Essential (primary) hypertension; E78.5 Hyperlipidemia, unspecified; J45.909 Unspecified asthma, uncomplicated; E86.9 Volume depletion, unspecified; E11.49 Type 2 diabetes mellitus with other diabetic neurological complication; Z79.84 Long term (current) use of oral hypoglycemic drugs
CPT/HCPCS: 36415; 70450; 71045; 74019; 76770; 80048; 80053; 80307; 80320; 81001; 82550; 82553; 82962; 84443; 84484; 85025; 85610; 85730; 87086; 93005; 93010; G0480; G8996-GN; G8997-GN; G8998-GN; J0360; J0610; J0696; J1815; J7030; J7070